=== PATIENT | female | born 1995 | race Asian ===

== ENCOUNTER 2017-09-06 03:54 | Emergency (ER) | payer OTHER ==
[~2017-09-06] VITALS: Ht 165.1 cm; Wt 64.6 kg
[2017-09-06 04:00] VITALS: TEMP 36.7; Ht 165.1 cm; Wt 64.6 kg
[2017-09-06] MEDS ORDERED: LORAZEPAM 2 MG/ML 1 ML VIAL IV STA (04:15)
[2017-09-06 04:22] VITALS: O2SAT 96
[2017-09-06 04:23] LABS: HEMATOCRIT 41.8 % (37-47); HEMOGLOBIN 14.2 g/dL (12.0-16.0); MEAN CELL VOLUME 84.8 fL (80-100); MEAN CORPUSCULAR HEMOGLOBIN 28.8 pg (25-34); MEAN PLATELET VOLUME 9.1 fL (7.4-10.4); PLATELET COUNT 302 K/uL (130-400); RED CELL DISTRIBUTION WIDTH CV 12.8 % (11.5-14.5); RED CELL DISTRIBUTION WIDTH SD 39.1 fL (36.4-46.3); WHITE BLOOD COUNT 10.19 K/uL (4.8-10.8)
[2017-09-06 04:46] LABS: ALBUMIN 4.1 gm/dl (3.4-5.0); BLOOD UREA NITROGEN 16 mg/dl (7-18); CARBON DIOXIDE 27 mmol/L (21-32); CREATININE 0.97 mg/dl (0.60-1.20); GLUCOSE 101 mg/dl (70-99); LIPASE 175 U/L (73-393); POTASSIUM 3.1 mmol/L (3.5-5.1); SODIUM 137 mmol/L (136-145)
[2017-09-06 04:49] LABS: ALKALINE PHOSPHATASE 78 U/L (45-117); ALT/SGPT 17 U/L (12-78); AST/SGOT 15 U/L (15-37); TOTAL PROTEIN 8.6 gm/dl (6.4-8.2)
[2017-09-06] MEDS ORDERED: POTASSIUM CHLORIDE 10 MEQ TABCR PO STA (05:04)
--- NOTE | 2017-09-06 05:11 | EMERGENCY ROOM VISIT NOTE ---
History First contact with patient: 04:03 Chief Complaint: CARDIAC ASSESSMENT Stated Complaint: CHEST PRESSURE,FEET/HANDS FREEZE,SHAKING Nursing Triage Summary: Patient reports chest pressure and cold hand and feet. History of Present Illness The patient is a 21 year old female who presents to the Emergency Room with complaints of midsternal chest pain with hand tingling for the past few hours described as discomfort, ranging in severity 4 out of 10. Patient states she feels anxious. Nothing makes it better or worse. Patient has traveled recently. She does not smoke. No drug use. No control. No family history of heart disease or blood clots. Patient denies dyspnea, fever, chills , cold symptoms, trauma to the area, back pain, leg pain or swelling, abdominal pain or any other medical complaints. No history of similar symptoms in the past. Symptoms started while she is watching a movie with her boyfriend on the couch. Review of Systems See HPI for pertinent positives & negatives. A total of 10 systems reviewed and were otherwise negative. Past Medical/Surgical History None Social History Smoking Status: Never Smoker Smokeless Tobacco Use: No Drug Use: none Marital Status: in relationship Current/Historical Medications No Active Prescriptions or Reported Meds Physical Exam Vital Signs Date Time Temp Pulse Resp B/P (MAP) Pulse Ox O2 Delivery O2 Flow Rate FiO2 09/06/17 05:19 76 16 117/63 98 09/06/17 04:22 96 Room Air 09/06/17 04:22 96 Room Air 09/06/17 04:22 82 09/06/17 04:00 36.7 76 18 155/105 100 Room Air Physical Exam VITALS: Vitals are noted on the nurse's note and reviewed by myself. Vital signs mildly hypertensive GENERAL: Pleasant female anxious-appearing, in no acute distress, nondiaphoretic , well-developed well-nourished. SKIN: The skin was without rashes, erythema, edema, or bruising. There is no tenting of the skin. Capillary reflex less than 2 seconds. HEAD: Normocephalic atraumatic. EARS: External auditory canals clear, tympanic membranes pearly rogers without erythema or effusion bilaterally. EYES: Pupils equal round and reactive to light and accommodation. Conjunctivae without injection, sclerae without icterus. Extraocular movements intact. NOSE: Patent, turbinates without inflammation or discharge. MOUTH: Mucous membranes moist. Pharynx without erythema or exudate. Uvula midline. Airway patent. Tongue does not deviate. NECK: Supple without nuchal rigidity. No lymphadenopathy. No thyromegaly. Cervical spine is nontender. No JVD. HEART: Regular rate and rhythm without murmurs gallops or rubs. Chest nontender to palpation LUNGS: Clear to auscultation bilaterally without wheezes, rales or rhonchi. No dullness to percussion. No retractions or accessory muscle use. ABDOMEN: Positive bowel sounds x 4. Normal tympanic percussion. Soft, nontender, without masses or organomegaly. Sharp sign negative. No guarding or rebound tenderness. MUSCULOSKELETAL: No muscle atrophy, erythema, or edema noted. NEURO: Patient was alert and oriented to person place and time. Normal sensation to light and sharp touch. No focal neurological deficits. Medical Decision & Procedures Laboratory Results 09/06/17 04:10 Red Blood Count 4.93, Mean Corpuscular Volume 84.8, Mean Corpuscular Hemoglobin 28.8, Mean Corpuscular Hemoglobin Concent 34.0, Mean Platelet Volume 9.1 09/06/17 04:10 Test 09/06/17 04:10 09/06/17 04:17 White Blood Count 10.19 K/uL (4.8-10.8) Red Blood Count 4.93 M/uL (4.2-5.4) Hemoglobin 14.2 g/dL (12.0-16.0) Hematocrit 41.8 % (37-47) Mean Corpuscular Volume 84.8 fL (80-100) Mean Corpuscular Hemoglobin 28.8 pg (25-34) Mean Corpuscular Hemoglobin Concent 34.0 g/dl (32-36) Platelet Count 302 K/uL (130-400) Mean Platelet Volume 9.1 fL (7.4-10.4) RDW Standard Deviation 39.1 fL (36.4-46.3) RDW Coefficient of Variation 12.8 % (11.5-14.5) Neutrophils % (Manual) 41.7 % Lymphocytes % (Manual) 26.5 % Variant Lymphocytes % (manual) 27.4 % Monocytes % (Manual) 3.5 % Eosinophils % (Manual) 0.9 % Neutrophils # (Manual) 4.25 K/uL (1.4-6.5) Total Absolute Neutrophils 4.25 K/uL (1.4-6.5) Lymphocytes # (Manual) 2.70 K/uL (1.2-3.4) Absolute Variant Lymphocytes 2.79 K/uL Total Absolute Lymphocytes 5.49 K/uL (1.2-3.4) Monocytes # (Manual) 0.36 K/uL (0.11-0.59) Eosinophils # (Manual) 0.09 K/uL (0-0.5) Red Blood Cell Morphology Unremarkable Anion Gap 6.0 mmol/L (3-11) Est Creatinine Clear Calc Drug Dose 81.2 ml/min Estimated GFR () 95.4 Estimated GFR (Non- 82.3 BUN/Creatinine Ratio 16.6 (10-20) Calcium Level 9.0 mg/dl (8.5-10.1) Total Bilirubin 0.3 mg/dl (0.2-1) Direct Bilirubin < 0.1 mg/dl (0-0.2) Aspartate Amino Transf (AST/SGOT) 15 U/L (15-37) Alanine Aminotransferase (ALT/SGPT) 17 U/L (12-78) Alkaline Phosphatase 78 U/L (45-117) Total Protein 8.6 gm/dl (6.4-8.2) Albumin 4.1 gm/dl (3.4-5.0) Lipase 175 U/L (73-393) Human Chorionic Gonadotropin, Qual NEG (NEG) Bedside D-Dimer 133 ng/mlFEU (0-450) Bedside Troponin I < 0.030 ng/ml (0-0.045) Medications Administered Medications (Trade) Dose Ordered Sig/Dora Route Start Time Stop Time Status Last Admin Dose Admin Lorazepam (Ativan Inj) 0.5 mg NOW STAT IV 09/06/17 04:15 09/06/17 04:16 DC 09/06/17 04:24 0.5 MG Potassium Chloride (Klor-Con M10) 40 meq NOW STAT PO 09/06/17 05:04 09/06/17 05:05 DC 09/06/17 05:19 40 MEQ ED Course Prior records/ancillary studies reviewed. Triage Nursing notes reviewed. Additional history obtained from boyfriend. The patient's history was concerning for chest pain. Differential diagnosis: Etiologies such as cardiac ischemia, aortic dissection, pulmonary embolism, pneumonia, pneumothorax, musculoskeletal, infections, pericarditis, myocarditis , esophageal rupture, gastrointestinal, as well as others were entertained. Physical examination: As above. ER treatment provided: Ativan, potassium On reassessment the patient felt better. Diagnostic interpretation by me: The electrocardiogram was Normal sinus, normal intervals, right axis deviation , no acute ST-T wave changes. Rate of 83. Impression normal sinus rhythm rate is deviation interpreted by myself The labs revealed negative troponin. Negative d-dimer. Imaging studies: Chest x-ray with no acute consolidation, pneumothorax or free air per my interpretation Exam and history seem consistent with noncardiac chest pain with low potassium and anxiety. HEART Score=0. Patient felt better to be medicated as above. She had a negative d-dimer. Normal EKG and negative troponin. Patient's potassium was replaced orally. She is advised to rest, decrease stress, follow-up family care in a few days or here in the ER sooner for chest pain, difficulty breathing , worsening signs or symptoms or as needed. Patient no family history of heart disease. She does not have diabetes blood pressure or cholesterol. She does not do drugs. She is well-appearing. By the evaluation outlined above emergent etiologies such as cardiac ischemia, aortic dissection, pulmonary embolism, pneumonia, pneumothorax, infections, pericarditis, myocarditis, gastrointestinal , as well as others were deemed relatively unlikely. The pt informed about the findings as listed above. All questions were answered and pleased with the treatment. Return instructions were outlined and the patient was discharged in stable condition. Referral: The patient was referred back to primary care physician for follow-up in 2 to 3 days for a recheck of the current condition. Case reviewed with my attending Medical Decision As above Medication Reconcilliation Current Medication List: was personally reviewed by me Blood Pressure Screening Patient's blood pressure: Elevated blood pressure Blood pressure disposition: Elevated BP felt to be situational Impression Primary Impression: Non-cardiac chest pain Additional Impression: Hypokalemia Departure Information Dispostion Home / Self-Care Condition GOOD Prescriptions No Active Prescriptions or Reported Meds Referrals No Doctor, Assigned (PCP) Patient Instructions My [facility] Additional Instructions DO NOT drive, drink alcohol, operate machinery, or perform dangerous activities today. You were given medications in the ER that can affect your ability to safely function or operate a vehicle. Ibuprofen(Motrin, Advil) may be used for fever or pain. Use 600mg every six hours as needed. Take with food. Avoid using more than 2400mg in a 24 hour period. Do not use 2400mg per day for more than three consecutive days without physician direction. Prolonged inappropriate use can lead to stomach upset or ulcers. (AND/OR) Acetaminophen(Tylenol) may be used for fever or pain. Use 1000mg every six hours as needed. Avoid using more than 3000mg in a 24 hour period. Rest and drink plenty of fluids as tolerated. Continue current medications. Avoid strenuous activities and anything that worsens your pain. Resume normal activities once your symptoms resolve. Return to the ER immediately for worsening or persistent chest pain, abdominal pain, vomiting, fevers, chest pains, difficulty breathing, worsening of your condition, or as needed. Follow up with your primary physician in 2-3 days for a recheck of your current condition. Problem Qualifiers
[2017-09-06 05:19] VITALS: BP 117/63; PULSE 76; O2SAT 98
--- NOTE | 2017-09-06 06:08 | DIAGNOSTIC IMAGING REPORT ---
CHEST ONE VIEW PORTABLE CLINICAL HISTORY: CHEST PAIN dyspnea COMPARISON STUDY: No previous studies for comparison. FINDINGS: The bones soft tissues and hemidiaphragms are normal. The cardiomediastinal silhouette is normal. The lungs are clear. The pulmonary vasculature is normal. IMPRESSION: Negative chest. The above report was generated using voice recognition software. It may contain grammatical, syntax or spelling errors. Electronically signed by: Pasha Mireles M.D. 09/06/2017 6:07 AM Dictated Date/Time: 09/06/2017 6:07 AM
== END 2017-09-06 05:19 | disposition home or self-care (01) ==
LOC: C.EDB 03:56 → C.EDA 05:19
DX: R07.89 Other chest pain (principal); E87.6 Hypokalemia